=== PATIENT | female | born 1995 | race Caucasian/White ===

== ENCOUNTER 2020-09-20 13:42 | Observation (INO) | payer BC ==
[~2020-09-20] VITALS: Ht 160 cm; Wt 78.9 kg
[2020-09-20 14:03] VITALS: BP 110/70
[2020-09-20] MEDS ORDERED: NACL 0.9% 1,000 ML IV ONE (14:45)
[2020-09-20] MEDS ORDERED: ACETAMINOPHEN 325 MG TAB PO ONE (14:45)
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
--- NOTE | 2020-09-20 15:00 | NUR ---
UP TO BSC,VOIDE 200 CC DARK URINE. URINE DIP COMPLETE, MD AWARE OF RESULTS.
--- NOTE | 2020-09-20 15:01 | NUR ---
BEDSIDE ULTRASOUND IN PROGRESS.
[2020-09-20 15:04] LABS: BASOPHILS % (AUTO) 0.2 % (0.0-2.0); EOSINOPHILS % (AUTO) 0.1 % (0.0-4.0); HEMATOCRIT 37.2 % (36-48); HEMOGLOBIN 12.4 g/dL (12.0-16.0); LYMPHOCYTES # (AUTO) 1.8 K/uL (2.5-16.5); LYMPHOCYTES % (AUTO) 10.9 % (20.5-51.1); MEAN CORPUSCULAR HEMOGLOBIN 28 pg (27-31); MEAN CORPUSCULAR HGB CONC 33 g/dL (33-37); MONOCYTES # (AUTO) 0.6 K/uL (0.8-1.0); NEUTROPHILS # (AUTO) 13.7 K/uL (1.8-7.7); NEUTROPHILS % (AUTO) 84.8 % (42.2-75.2); PLATELET COUNT (AUTO) 332 K/uL (140-450); RED BLOOD CELL COUNT(AUTO) 4.38 MIL/uL (4.20-5.40); RED CELL DISTRIBUTION WIDTH 14.6 % (11.6-13.7); WHITE BLOOD COUNT (AUTO) 16.2 K/uL (4.8-10.8)
--- NOTE | 2020-09-20 15:10 | NUR ---
SIGNIFICANT OTHER AT BEDSIDE.
[2020-09-20 15:22] LABS: D-DIMER > 5000 ng/ml (0-400); FIBRINOGEN 456 mg/dL (200-400); PROTHROMBIN TIME 9.5 secs (10.8-13.4)
[2020-09-20] MEDS ORDERED: ACETAMINOPHEN 325 MG TAB ONE (15:54)
[2020-09-20 16:27] LABS: APPEARANCE,URINE SL CLOUDY (CLEAR); BILIRUBIN,URINE NEGATIVE (NEGATIVE); BLOOD, URINE 3+ (NEGATIVE); COLOR,URINE YELLOW (YELLOW); LEUKOCYTE ESTERASE ,URINE NEGATIVE (NEGATIVE); NITRITE, URINE POSITIVE (NEGATIVE); PH,URINE 6.5 (5.0-9.0); UGLUCOSE NEGATIVE (NEGATIVE)
--- NOTE | 2020-09-20 16:32 | NUR ---
DR OWENS AT BEDSIDE TO DISCUSS RESULTS AND PLAN TO MONITOR X 2 HOURS.
--- NOTE | 2020-09-20 17:03 | NUR ---
PT TRANFER TO L&D VIA W/C WITH DARLYN ABDI WITH AT SIDE.
[2020-09-20 18:27] VITALS: BP 110/50
--- NOTE | 2020-09-20 18:31 | NUR ---
Patient discharged with v/s stable. Written and verbal after care instructions given and explained. Patient alert, oriented and verbalized understanding of instructions. Ambulatory with steady gait. All questions addressed prior to discharge. ID band removed. Patient advised to follow up with PMD. Rx of NONE given. Patient educated on indication of medication including possible reaction and side effects. Opportunity to ask questions provided and answered.
[2020-09-20 19:53] LABS: RBC,URINE 80-100 /HPF (0-5)
== END 2020-09-20 18:34 | disposition home or self-care (01) ==
LOC: MED 13:42 → MLD 17:20
PROVIDERS: ADMIT Obstetrics & Gynecology; ATTEND Obstetrics & Gynecology
DX: O99.891 Other specified diseases and conditions complicating pregnancy (principal); M54.5 Low back pain; M79.652 Pain in left thigh; O26.892 Other specified pregnancy related conditions, second trimester; R10.9 Unspecified abdominal pain; Z3A.19 19 weeks gestation of pregnancy
CPT/HCPCS: 36415; 59025; 73501; 73552; 76700; 81001; 85025; 85379; 85384; 85610; 85730; 87086; 96360; 96361; 99285; G0378